=== PATIENT | female | born 1940 | race Caucasian/White ===

== ENCOUNTER 2017-10-08 20:22 | Inpatient (IN) | payer OTHER ==
[~2017-10-08] VITALS: Ht 157.5 cm; Wt 61.7 kg
[~2017-10-08 20:22] MED LIST: ACID REDUCER150 MG PO; DOCUSATE SODIU1 EACH PO; LOPRESSOR100 M1 PO; PROBIOTIC1 EACH PO; PSYLLIUM FIBE0.52 GM PO; TIZANIDINE HCL2 M1 PO; ZOCOR10 M1 PO
[2017-10-08 22:59] VITALS: BP 120/66
[2017-10-08] MEDS ORDERED: TYLENOL PO (23:53)
[2017-10-08] MEDS ORDERED: AMITRIPTYLINE H10 M2 PO (23:53)
[2017-10-08] MEDS ORDERED: ASPIRIN EC325 M2 PO (23:53)
[2017-10-08] MEDS ORDERED: OS-CAL 500+D31 EACH PO (23:55)
[2017-10-08] MEDS ORDERED: CELEBREX200 M1 PO (23:55)
[2017-10-08] MEDS ORDERED: VITAMIN D31000 UNI2 PO (23:56)
[2017-10-08] MEDS ORDERED: NEURONTIN100 M1 PO (23:57)
[2017-10-08] MEDS ORDERED: GLUCOSAMINE &1 EACH PO (23:57)
[2017-10-08] MEDS ORDERED: LEVOTHYROXINE100 MC1 PO (23:58)
[2017-10-08] MEDS ORDERED: HYDROCHLOROTH12.5 M3 PO (23:58)
[2017-10-08] MEDS ORDERED: COZAAR100 M1 PO (23:59)
[2017-10-08] MEDS ORDERED: MELATONIN3 M4 PO (23:59)
--- NOTE | 2017-10-09 00:31 | History & Physical Pre-Op ---
General Information and HPI MD Statement: I have seen and personally examined RAJAN ASTUDILLO and documented this H&P. The patient is a 77 year old F who presented with a patient stated chief complaint of [RIGHT HIP PAIN]. History of Present Illness: This 77 year old female with history of hypertension, hyperlipidemia, heriditary hemochromatosis, colitis, arthritis, hypothyroidism, mitral valve prolapse, spinal stenosis, migraines, and GERD, presents as a direct admission transferred from [facility] with a gustavo-prosthetic right hip fracture approximately one month following an elective right hip replacement by . She describes a twisting motion earlier tonight caused her to nearly fall, however she was caught by her friend walking with her. She immediately felt pain along her right lateral thigh and hip. She was evaluated at [facility], where they found a periprosthetic right hip fracture, and then transferred to [place] for reported plans for surgery on tuesday by . She denied any precipitating factors. No dizziness. No shortness of breath. No chest pains. She was voiding without difficulty prior to the odom insertion at [facility]. She is apprehensive about what her recovery will be like following surgical repair. Allergies/Medications Allergies: Coded Allergies: Penicillins (Mild, HIVES 10/08/17) Home Med list Amitriptyline HCl 10 MG TABLET 1 TAB PO DAILY HOME MED (Reported) Aspirin (Ecotrin*) 325 MG TABLET.DR 1 TAB PO BID POST-OP HIP REPLACEMENT ( Reported) Calcium Carbonate/Vitamin D3 (Os-Meir 500+D3 Caplet) 500 MG-600 TABLET 1 TAB PO D HOME MED (Reported) Celecoxib (Celebrex) 200 MG CAPSULE 1 CAP PO DAILY HOME MED (Reported) Cholecalciferol (Vitamin D3) 1,000 UNIT TABLET 1 TAB PO DAILY VIT D REPLACEMENT (Reported) Gabapentin (Neurontin) 100 MG CAPSULE 1 CAP PO BID HOME MED (Reported) Glucosa Machado 2KCL/Chondroitin Machado (Glucosamine & Chondroitin Cap) (Unknown Strength ) CAPSULE (Unknown Dose) HOME MED (Reported) Hydrochlorothiazide 12.5 MG CAPSULE 1 CAP PO DAILY HYPERTENSION (Reported) Lactobacillus Acidophilus (Probiotic) (Unknown Strength) CAPSULE (Unknown Dose ) HOME MED (Reported) Levothyroxine Sodium 100 MCG TABLET 1 TAB PO DAILY HYPOTHYROIDISM (Reported) Losartan (Cozaar) 100 MG TABLET 1 TAB PO DAILY HYPERTENSION (Reported) SHE HASN'T BEEN TAKING THIS RECENTLY Melatonin 3 MG TABLET 1 TAB PO QPM PRN SLEEP (Reported) Metoprolol Tartrate (Lopressor) 100 MG TABLET 1 TAB PO BID HYPERTENSION ( Reported) Psyllium Husk (Psyllium Fiber) (Unknown Strength) CAPSULE (Unknown Dose) HOME MED (Reported) Ranitidine HCl (Acid Land Title Examiner) 150 MG TABLET 1 TAB PO BID GERD (Reported) Sennosides/Docusate Sodium (Docusate Sodium-Senna Tablet) 8.6 MG-50 MG TABLET 2 TAB PO BID CONSTIPATION (Reported) Simvastatin (Zocor*) 10 MG TABLET 1 TAB PO QPM HYPERLIPIDEMIA (Reported) Tizanidine HCl 2 MG TABLET 1-2 TAB PO TID PRN MUSCLE SPASMS (Reported) [TYLENOL] 975 MG PO TIDPRN PRN PAIN CONTROL (Reported) Past History Medical History Blood Transfusion Hx: No Neurological: migraine EENT: cataracts Cardiovascular: hypertension, hyperlipidemia, mitral valve prolapse Respiratory: NONE Gastrointestinal: colitis, GERD Hepatic: NONE Renal: NONE Musculoskeletal: osteoarthritis, spinal stenosis, osteopenia, scoliosis Psychiatric: anxiety Endocrine: hypothyroidism Blood Disorders: hereditary hemochromatosis Cancer(s): basal cell carcinoma REGISTERED APPRAISER/Reproductive: NONE Isolation History: Standard Influenza Vaccine: 04/03/17 Surgical History Pertinent Surgical History: arthroscopy, cataract removal, hip replacement, tonsillectomy Past Family/Social History Family History Relations & Conditions if any Family history was reviewed; no changes noted. Psychosocial History Where Do You Live? Other Services at Home None Smoking Status: Never Smoked ETOH Use: denies use Review of Systems Review of Systems: admits: right hip pain denies: dizziness, shortness of breath, chest pains, dysuria, diarrhea, nausea/ vomiting Exam & Diagnostic Data Last 24 Hrs of Vital Signs/I&O Vital Signs Date Time Temp Pulse Resp B/P B/P Pulse O2 O2 Flow FiO2 Mean Ox Delivery Rate 10/08 2259 98.1 82 18 120/66 98 Room Air Intake & Output 10/09 0800 04 0000 10/08 1600 Intake Total Output Total Balance Patient 135 lb Weight Weight Reported by Patient Measurement Method Physical Exam: General - alert & oriented x 3. comfortable. no acute distress. Skin - warm, dry, and smooth. no rashes. Neck - soft and supple. no lad. Lungs - clear bilaterally. no w/r/r. Cardiac - reg. Abdomen - soft. nontender. - odom draining clear, yellow urine. Extremities - warm bilaterally. no c/c/e. calves soft and nontender b/l. well healed incision along right thigh. no erythema or exudates. right leg externally rotated and shortened. nvi. palpable pulses distally, which are symmetrical. calves soft and nontender b/l. Neuro - speech smooth and coordinated. no focal deficits. Assessment/Plan Assessment/Plan: This 77 year old white female with hx anxiety, hypertension, hyperlipidemia, hereditary hemochromatosis, hypothyroidism, GERD, migraines, spinal stenosis, mitral valve prolapse, presents about one month s/p right total hip replacement as a direct admission / transfer from [facility] after discovering a periprosthetic right hip fracture s/p twisting injury surgical repair plan for 10/10/17 by will keep npo after midnight for tuesday check labs in morning for pre-op status ?hold asa pre-op pain control as needed odom for strict i/o's and due to immobility home meds ordered ?imaging studies needed will d/w As Ranked By This Provider Problem List: 1. Status post total hip replacement, right 2. Periprosthetic fracture of hip 3. Mitral valve prolapse 4. Anxiety 5. Hypothyroidism 6. GERD (gastroesophageal reflux disease) 7. Hemochromatosis 8. Hyperlipidemia 9. Hypertension 10. Spinal stenosis 11. Colitis 12. Migraine
--- NOTE | 2017-10-09 00:32 | Admission Core Measures ---
Acute Coronary Syndrome (CM) ACS Core Measures Acute Coronary Syndrome Diagnosis No Congestive Heart Failure (NEW) CHF Core Measures Congestive Heart Failure Diagnosis No Cerebrovascular Accident (NEW) CVA Core Measures CVA/TIA Diagnosis No Venous Thromboembolism VTE Core Misbah (View Protocol) VTE Risk Factors Surgery No Mechanical VTE Prophylaxis d/t N/A MechProphylax Ordered No VTE Pharm Prophylaxis d/t Surgical Contraindication Problem List As ranked by this Provider includes Assessment & Plan 1. Status post total hip replacement, right 2. Migraine 3. Colitis 4. Spinal stenosis 5. Mitral valve prolapse 6. Anxiety 7. Hypothyroidism 8. GERD (gastroesophageal reflux disease) 9. Hemochromatosis 10. Hyperlipidemia 11. Hypertension 12. Periprosthetic fracture of hip HOME MEDS Home Med List Amitriptyline HCl 10 MG TABLET 1 TAB PO DAILY HOME MED (Reported) Aspirin (Ecotrin*) 325 MG TABLET.DR 1 TAB PO BID POST-OP HIP REPLACEMENT ( Reported) Calcium Carbonate/Vitamin D3 (Os-Meir 500+D3 Caplet) 500 MG-600 TABLET 1 TAB PO D HOME MED (Reported) Celecoxib (Celebrex) 200 MG CAPSULE 1 CAP PO DAILY HOME MED (Reported) Cholecalciferol (Vitamin D3) 1,000 UNIT TABLET 1 TAB PO DAILY VIT D REPLACEMENT (Reported) Gabapentin (Neurontin) 100 MG CAPSULE 1 CAP PO BID HOME MED (Reported) Hydrochlorothiazide 12.5 MG CAPSULE 1 CAP PO DAILY HYPERTENSION (Reported) Levothyroxine Sodium 100 MCG TABLET 1 TAB PO DAILY HYPOTHYROIDISM (Reported) Losartan (Cozaar) 100 MG TABLET 1 TAB PO DAILY HYPERTENSION (Reported) Melatonin 3 MG TABLET 1 TAB PO QPM PRN SLEEP (Reported) Metoprolol Tartrate (Lopressor) 100 MG TABLET 1 TAB PO BID HYPERTENSION ( Reported) Ranitidine HCl (Acid Dance Instructor) 150 MG TABLET 1 TAB PO BID GERD (Reported) Sennosides/Docusate Sodium (Docusate Sodium-Senna Tablet) 8.6 MG-50 MG TABLET 2 TAB PO BID CONSTIPATION (Reported) Simvastatin (Zocor*) 10 MG TABLET 1 TAB PO QPM HYPERLIPIDEMIA (Reported) Tizanidine HCl 2 MG TABLET 1-2 TAB PO TID PRN MUSCLE SPASMS (Reported) [TYLENOL] 975 MG PO TIDPRN PRN PAIN CONTROL (Reported)
[2017-10-09 05:59] VITALS: BP 146/66
[2017-10-09 08:17] LABS: ABSOLUTE BASOPHIL COUNT 0 /CUMM (0.0-0.2); ABSOLUTE EOSINOPHIL COUNT 0 /CUMM (0.0-0.7); ABSOLUTE LYMPH COUNT 1.3 /CUMM (1.2-3.4); ABSOLUTE MONOCYTE COUNT 0.9 /CUMM (0.10-0.60); BASOPHIL % 0.5 % (0.0-2.0); EOSINOPHIL % 0.5 % (0-5); GRANULOCYTE % 75.7 % (42.2-75.2); HEMATOCRIT 31.3 % (37-47); MEAN CORPUSCULAR HGB 30.4 PG (27.0-31.0); MEAN CORPUSCULAR HGB CONC 33.3 G/DL (33.0-37.0); MEAN CORPUSCULAR VOLUME 91.3 FL (81.0-99.0); MEAN PLATELET VOLUME 9.5 FL (7.4-10.4); PLATELET COUNT 273 /CUMM (130-400); RED BLOOD CELL CT 3.43 /CUMM (4.20-5.40); WHITE BLOOD CELL COUNT 9.2 /CUMM (4.8-10.8)
--- NOTE | 2017-10-09 09:39 | PN- Orthopedic ---
Subjective Subjective: PT IN BED, VERY UPSET AND CONCERNED ABOUT THIS FRACTURE. PAIN CONTROLLED WITH MEDICATION. NO NAUSEA TOLERATING DIET, PASSING GAS, NO BM NO CP/SOB/FEVER, [place]/ DIZZINESS Objective Vital Signs and I&Os Vital Signs Date Time Temp Pulse Resp B/P B/P Pulse O2 O2 Flow FiO2 Mean Ox Delivery Rate 10/09 0459 97.8 77 20 146/66 98 10/08 2259 98.1 82 18 120/66 98 Room Air Intake & Output 10/09 0000 10/08 0000 Intake Total 250 Output Total 300 Balance -50 Intake, Oral 250 Output, Urine 300 Patient 128 lb 135 lb Weight Weight Bed scale Reported by Patient Measurement Method Physical Exam: GEN- NAD RESP- CLEAR CARDIAC- RRR ABD- SOFT, NONTENDER EXT- RIGHT HIP WITH SOFT WITH MODERATE SWELLING AND TENDER TO TOUCH, NO ECCHYMOSIS. RIGHT LEG SHORTENED AND EXTERNALLY ROTATED DISTAL SENSORY AND MOTOR FUNCTION INTACT. 2+DP PULSE. NO CALF TENDERNESS Current Medications: Current Medications Sig/Gordo Start time Last Medication Dose Route Stop Time Status Admin Acetaminophen 1,000 MG Q6P PRN 10/09 14 AC N/A 1 UNIT IV Amitriptyline HCl 10 MG AT BEDTIME 10/09 2200 AC PO Atorvastatin Calcium 10 MG 1700 10/09 1700 AC PO Cholecalciferol 1,000 IU DAILY 10/09 1000 AC PO Famotidine 10 MG BID 10/09 1000 AC PO Gabapentin 100 MG BID 10/09 1000 AC PO Heparin Sodium 5,000 UNIT ONCE ONE 10/09 899 DC (Porcine) SC 10/09 900 Hydrochlorothiazide 12.5 MG DAILY 10/09 1000 AC PO Hydromorphone HCl 2 MG Q4-6 PRN PRN 10/09 001 AC PO Hydromorphone HCl 4 MG Q4-6 PRN PRN 10/09 0015 AC 10/09 PO 0527 Lactobacillus 1 CAP BID 10/09 1000 AC Acidophilus PO Levothyroxine Sodium 0.1 MG DAILY AC 10/09 0700 AC 10/09 PO 0527 Melatonin 5 MG AT BEDTIME PRN 10/09 0015 AC PO Metoprolol Tartrate 100 MG BID 10/09 1000 AC PO Psyllium Hydrophilic 1 PAC BID 10/09 1000 AC Mucilloid PO Senna/Docusate Sodium 2 TAB BID PRN 10/09 14 AC PO Tizanidine HCl 2 MG TIDPRN PRN 10/09 14 AC PO Results Last 48 Hours of Labs: Laboratory Tests 10/09 0600 Chemistry Sodium (137 - 145 mmol/L) 138 Potassium (3.5 - 5.1 mmol/L) 4.0 Chloride (98 - 107 mmol/L) 98 Carbon Dioxide (22 - 30 mmol/L) 26 Anion Gap (5 - 16) 13 BUN (7 - 17 mg/dL) 18 H Creatinine (0.5 - 1.0 mg/dL) 0.8 Estimated GFR (>60 ml/min) > 60 BUN/Creatinine Ratio (7 - 25 %) 22.5 Glucose (65 - 99 mg/dL) 91 Magnesium (1.6 - 2.3 mg/dL) 1.8 Hematology CBC w Diff NO MAN DIFF REQ WBC (4.8 - 10.8 /CUMM) 9.2 RBC (4.20 - 5.40 /CUMM) 3.43 L Hgb (12.0 - 16.0 G/DL) 10.4 L Hct (37 - 47 %) 31.3 L MCV (81.0 - 99.0 FL) 91.3 MCH (27.0 - 31.0 PG) 30.4 MCHC (33.0 - 37.0 G/DL) 33.3 RDW (11.5 - 14.5 %) 14.0 Plt Count (130 - 400 /CUMM) 273 MPV (7.4 - 10.4 FL) 9.5 Gran % (42.2 - 75.2 %) 75.7 H Lymphocytes % (20.5 - 51.1 %) 13.9 L Monocytes % (1.7 - 9.3 %) 9.4 H Eosinophils % (0 - 5 %) 0.5 Basophils % (0.0 - 2.0 %) 0.5 Absolute Granulocytes (1.4 - 6.5 /CUMM) 7.0 H Absolute Lymphocytes (1.2 - 3.4 /CUMM) 1.3 Absolute Monocytes (0.10 - 0.60 /CUMM) 0.9 H Absolute Eosinophils (0.0 - 0.7 /CUMM) 0 Absolute Basophils (0.0 - 0.2 /CUMM) 0 Assessment/Plan Assessment/Plan 77YO F WITH RIGHT HIP PERIPROSTHETIC FEMUR FRACTURE. SP R TIMOTHY 1 MONTH AGO. STABLE. PLAN FOR SURGERY TOMORROW WITH DR SALDANA RIGHT HIP AND FEMUR X-RAYS TODAY PRE-OP LABS IN AM PAIN MANAGEMENT WITH ORAL MEDS REG DIET, THEN NPO AFTER MIDNIGHT IN PREPARATION FOR SURGERY TOMORROW DVT PPX- HSQ X 1 DOSE TODAY. ASA ON HOLD FOR NOW PER SHANA REGULAR HOME MEDICATIONS REYES TO STAY IN FOR NOW Core Measures Venous Thromboembolism VTE Risk Factors Surgery No Mechanical VTE Prophylaxis d/t N/A MechProphylax Ordered No VTE Pharm Prophylaxis d/t Surgical Contraindication
[2017-10-09 14:29] VITALS: BP 120/62
--- NOTE | 2017-10-09 15:40 | RADIOLOGY REPORT ---
EXAMINATION: XR HIP, RIGHT, RIGHT femur CLINICAL INFORMATION: Fracture COMPARISON: None TECHNIQUE: Two views of the right hip, 3 views RIGHT femur. FINDINGS: There is an oblique fracture through the proximal diaphysis of the femur extending from the greater trochanter and medially just distal to the lesser trochanter, there is a gap at the fracture site about 1.7 cm, the fracture is through the insertion of the femoral portion of the RIGHT hip prosthesis. Adjacent pubic rami are intact. Distal femur and femoral condyles are normal. There are mild vascular calcifications. IMPRESSION: Mildly displaced oblique RIGHT femoral fracture extends through the RIGHT hip prosthesis device.
[2017-10-09 21:48] VITALS: BP 110/58
[2017-10-10 05:52] VITALS: BP 124/58
--- NOTE | 2017-10-10 07:27 | PN- Orthopedic ---
Subjective Subjective: CO moderate pain and spasm in the R hip/proximal thigh. no acute events overnight. Objective Vital Signs and I&Os Vital Signs Date Time Temp Pulse Resp B/P B/P Pulse O2 O2 Flow FiO2 Mean Ox Delivery Rate 10/10 0452 98.0 73 20 124/58 96 10/09 2148 98.1 77 18 110/58 96 Room Air 10/09 2027 77 110/58 10/09 1429 98.4 68 20 120/62 97 Room Air 10/09 1013 146/66 Intake & Output 10/10 0810/10 0000 10/09 1600 10/09 0810/09 0000 10/08 1600 Intake Total 800 250 Output Total 250 350 550 300 Balance -250 450 -550 -50 Intake, Oral 800 250 Output, Urine 250 350 550 300 Patient 128 lb 128 lb 135 lb Weight Weight Bed scale Bed scale Reported by Patient Measurement Method Physical Exam: wdwn, aox3, nad no resp distress R LE: tenderenss and pain w ROM R hip, mild swellig. nvi, no calf pain. Assessment/Plan Assessment/Plan R hip periprosthetic femur fracture plan for OR today for revision/orif NPO pain meds as needed IVF bedrest until surgery. Core Measures Venous Thromboembolism VTE Risk Factors Surgery No Mechanical VTE Prophylaxis d/t N/A MechProphylax Ordered No VTE Pharm Prophylaxis d/t Surgical Contraindication
[2017-10-10 08:59] LABS: PT 11.9 SEC (9.4-12.5); PTT 26 SEC (25-37)
[2017-10-10 09:29] LABS: ABSOLUTE BASOPHIL COUNT 0.1 /CUMM (0.0-0.2); ABSOLUTE EOSINOPHIL COUNT 0.2 /CUMM (0.0-0.7); ABSOLUTE GRANULOCYTE CT 5.4 /CUMM (1.4-6.5); ABSOLUTE LYMPH COUNT 1.4 /CUMM (1.2-3.4); BASOPHIL % 0.9 % (0.0-2.0); EOSINOPHIL % 2.5 % (0-5); GRANULOCYTE % 66.7 % (42.2-75.2); HEMATOCRIT 30.7 % (37-47); MEAN CORPUSCULAR HGB 30.7 PG (27.0-31.0); MEAN CORPUSCULAR HGB CONC 33.4 G/DL (33.0-37.0); MEAN CORPUSCULAR VOLUME 92.1 FL (81.0-99.0); MEAN PLATELET VOLUME 9.4 FL (7.4-10.4); PLATELET COUNT 236 /CUMM (130-400); RBC DISTRIBUTION WIDTH 14.3 % (11.5-14.5); RED BLOOD CELL CT 3.33 /CUMM (4.20-5.40); WHITE BLOOD CELL COUNT 8.1 /CUMM (4.8-10.8)
[2017-10-10 14:26] LABS: ABSOLUTE BASOPHIL COUNT 0 /CUMM (0.0-0.2); ABSOLUTE EOSINOPHIL COUNT 0.1 /CUMM (0.0-0.7); ABSOLUTE GRANULOCYTE CT 6.1 /CUMM (1.4-6.5); ABSOLUTE LYMPH COUNT 0.8 /CUMM (1.2-3.4); ABSOLUTE MONOCYTE COUNT 0.7 /CUMM (0.10-0.60); BASOPHIL % 0.3 % (0.0-2.0); EOSINOPHIL % 1.3 % (0-5); GRANULOCYTE % 78.8 % (42.2-75.2); HEMATOCRIT 26.1 % (37-47); MEAN CORPUSCULAR HGB 30.3 PG (27.0-31.0); MEAN CORPUSCULAR HGB CONC 32.9 G/DL (33.0-37.0); MEAN CORPUSCULAR VOLUME 91.9 FL (81.0-99.0); MEAN PLATELET VOLUME 9.3 FL (7.4-10.4); PLATELET COUNT 207 /CUMM (130-400); RBC DISTRIBUTION WIDTH 13.9 % (11.5-14.5); RED BLOOD CELL CT 2.84 /CUMM (4.20-5.40); WHITE BLOOD CELL COUNT 7.7 /CUMM (4.8-10.8)
--- NOTE | 2017-10-10 15:50 | Operative Report ---
Operative/Inv Procedure Report Surgery Date: 10/10/17 Name of Procedure: 1.Right total hip revision 2.ORIF R femur Pre-Operative Diagnosis: Right [place] type BII periprosthetic femur fracture Post-Operative Diagnosis: Same Estimated Blood Loss: 350 Surgeon/Pricing/Signage Team Member: Alex Wilkes MD Anesthesia: block Operative/Procedure Note Note: Description of Procedure: The patient was taken to the operating room and positively identified. After induction of spinal anesthesia and administration of appropriate pre-operative antibiotics, the patient was positioned supine on the operating room table and all bony prominences were well padded. After performing a surgical timeout, the right lower extremity was prepped and draped in the usual sterile fashion. Utilizing the previous incision, a direct anterior approach was made to the right hip. This was carried down through skin and subcutaneous tissue to the level of the fascia. Meticulous hemostasis was maintained with Bovie cautery. The previous fascial incision was identified and opened. A large hematoma was encountered and evacuated. The hip was then exposed. It was immediately apparent that there was a large medial cortical fragment and a smaller anterior cortical fragment. Exposure continued until the femur could be mobilized. The stem was then removed without difficulty. The fracture bed was then curetted free of hematoma and the edges were all cleaned. A pointed reduction forcep, the medial fragment was anatomically reduced. At this time, a Dall-Miles cable was placed at the distal extent of the fracture and tightened. Exposure of the femur then continued. Once I had adequate proximal exposure, the canal was prepared to accept a Carlos jain modular revision hip stem. The canal was reamed distally to accept a 15 mm x 155 mm jain modular conical distal stem. The proximal femur was prepared to accept a 19 mm +0 cone body. This was trialed for leg length and stability. The trial cone body was removed and the final cone body was impacted into place. The torque bolt was tightened to specification. At this point, a second Dall-Miles cable was placed proximal to the lesser trochanter and tightened appropriately. The trunnion was well cleaned and fit with a 36 mm -2.5 Biolox delta ceramic femoral head. The hip was reduced and put through a full range of motion and found to be quite stable. The articular space was then irrigated with sterile saline. The periarticular soft tissues were infilitrated with Marcaine. A gram of vancomycin powder was left in the intra-articular space. A medium Hemovac drain was placed. The fascial layer was closed with interrupted #1 vicryl suture and the skin was re- approximated with interrupted 2-0 vicryl. The skin was closed with a running 3- 0 V-Lock suture. Steri-strips and a sterile dressing were applied. The patient was awakened and taken to the recovery room in satisfactory condition.
--- NOTE | 2017-10-10 16:35 | PN- Orthopedic ---
Subjective Subjective: Postop check: Patient comfortable, and expected pain postoperatively. No other complaints. Objective Vital Signs and I&Os Vital Signs Date Time Temp Pulse Resp B/P B/P Pulse O2 O2 Flow FiO2 Mean Ox Delivery Rate 10/10 1148 Room Air 10/10 1144 Room Air 10/10 1045 72 124/58 10/10 0552 98.0 73 20 124/58 96 10/09 2148 98.1 77 18 110/58 96 Room Air 10/09 2026 77 110/58 Vital signs stable, afebrile, heart rate 70, blood pressure 124/80 Intake & Output 10/10 1600 10/10 0810/10 0000 10/09 1600 10/09 0000 Intake Total 800 250 Output Total 300 250 350 550 300 Balance -300 -250 450 -550 -50 Intake, Oral 800 250 Number 0 Bowel Movements Output, Urine 300 250 350 550 300 Patient 128 lb 128 lb 135 lb Weight Weight Bed scale Bed scale Reported by Patient Measurement Method Physical Exam: Well-developed well-nourished no apparent distress. HEENT: Atraumatic, extraocular motion intact Neck: Supple, no lymphadenopathy Respiratory: No respiratory distress Extremities: No edema RIGHT lower extremity hip dressing in place, Dressing clean dry and intact Hemovac drain in place, small amount of bloody drainage noted, holding suction Moderate thigh swelling No signs of infection. No shortening or rotation Neurovascularly intact distally Bilateral calves are supple, nontender. Neuro: Alert and oriented x3 Psych: Mood affect normal, normal memory normal judgment. Skin: Warm and dry, no rash on exposed skin Assessment/Plan Assessment/Plan Postop day #0 status post right total hip arthroplasty revision and open reduction internal fixation secondary to periprosthetic right femur fracture. Perioperative antibiotics. Pain medication as needed. Out of bed tomorrow Physical therapy, weightbearing as tolerated IV fluids Regular diet Continue Hemovac Acute blood loss anemia, received transfusion of 1 unit of packed red blood cells in the OR secondary to hematocrit of 26 and hypotension, Follow a.m. labs Aspirin for DVT prophylaxis starting tomorrow ALPS for DVT prophylaxis Regular home meds Dressing change postop day 2 Would like to be discharged to [facility] for continued physical therapy rehabilitation when medically stable Core Measures Venous Thromboembolism VTE Risk Factors Surgery No Mechanical VTE Prophylaxis d/t N/A MechProphylax Ordered No VTE Pharm Prophylaxis d/t Surgical Contraindication
--- NOTE | 2017-10-10 16:51 | RADIOLOGY REPORT ---
EXAMINATION: XR HIP, RIGHT CLINICAL INFORMATION: Right hip replacement. COMPARISON: None TECHNIQUE: Two views of the right hip. FINDINGS: Status post right hip replacement. Orthopedic and femoral components in place. There are cerclage wires around the proximal femur. There is a surgical drain in place IMPRESSION: Status post right hip replacement.
[2017-10-10 21:12] VITALS: BP 153/81
[2017-10-10 22:19] VITALS: BP 128/60
[2017-10-11 02:00] VITALS: BP 126/58
[2017-10-11 06:00] VITALS: BP 134/64
[2017-10-11 08:01] LABS: ABSOLUTE BASOPHIL COUNT 0 /CUMM (0.0-0.2); ABSOLUTE EOSINOPHIL COUNT 0 /CUMM (0.0-0.7); ABSOLUTE GRANULOCYTE CT 10.6 /CUMM (1.4-6.5); ABSOLUTE LYMPH COUNT 0.6 /CUMM (1.2-3.4); BASOPHIL % 0 % (0.0-2.0); EOSINOPHIL % 0 % (0-5); MEAN PLATELET VOLUME 9.3 FL (7.4-10.4); RBC DISTRIBUTION WIDTH 14.9 % (11.5-14.5)
[2017-10-11 08:21] LABS: ABSOLUTE MONOCYTE COUNT 0.9 /CUMM (0.10-0.60); MEAN CORPUSCULAR HGB 30.4 PG (27.0-31.0); MEAN CORPUSCULAR VOLUME 89.3 FL (81.0-99.0); PLATELET COUNT 216 /CUMM (130-400); RED BLOOD CELL CT 3.14 /CUMM (4.20-5.40)
[2017-10-11 08:27] LABS: WHITE BLOOD CELL COUNT 12.1 /CUMM (4.8-10.8)
--- NOTE | 2017-10-11 08:35 | PN- Orthopedic ---
Subjective Subjective: Patient progressing well. No complaints of pain to her right hip. Tolerating a regular diet. Voiding spontaneously. Yet to ambulate with PT. Objective Vital Signs and I&Os Vital Signs Date Time Temp Pulse Resp B/P B/P Pulse O2 O2 Flow FiO2 Mean Ox Delivery Rate 10/11 599 97.7 81 18 134/64 99 10/11 0200 97.6 73 18 126/58 94 10/10 2219 97.8 79 18 128/60 100 Room Air 10/10 2112 97.6 96 20 153/81 100 Room Air 10/10 2052 122/72 10/10 1148 Room Air 10/10 1144 Room Air 10/10 1045 72 124/58 Intake & Output 10/11 1600 10/11 0000 10/10 1600 10/10 0000 Intake Total 940 800 Output Total 800 100 300 250 350 Balance 140 -100 -300 -250 450 Intake, IV 700 Intake, Oral 240 800 Number 0 Bowel Movements Output, 100 Drainage Output, Urine 700 100 300 250 350 Patient 136 lb 128 lb Weight Weight Bed scale Measurement Method Physical Exam: Gen: AAOx3 in NAD Cor: S1+S2+ Lungs: CTA jero Abd: soft, NT, ND, +BS x4 Ext: right hip dressing C/D/I. Dorsiflexion/plantar flexion 5/5. Palpable DP pulse. Foot cool. TEDs/ALPs in place. Current Medications: Current Medications Sig/Gordo Start time Last Medication Dose Route Stop Time Status Admin Acetaminophen 1,000 MG Q6H 10/10 2014 AC 10/11 N/A 1 UNIT IV 10/11 1429 0206 Acetaminophen 1,000 MG Q6P PRN 10/10 1515 DC N/A 1 UNIT IV Acetaminophen 1,000 MG Q6P PRN 10/09 0015 DC N/A 1 UNIT IV Amitriptyline HCl 10 MG AT BEDTIME 10/09 220 AC 10/10 PO 205 Aspirin Buffered 325 MG BID 10/11 1000 AC PO Atorvastatin Calcium 10 MG 1700 10/09 1700 AC 10/10 PO 1838 Cefazolin Sodium 2 GM IQ8 10/11 0000 DC 10/10 N/A 1 UNIT IV 10/11 0829 2347 Cholecalciferol 1,000 IU DAILY 10/09 1000 AC 10/10 PO 1046 Dextrose/Sodium 1,000 ML Q13H 10/10 1515 DC 10/10 Chloride IV 2349 Docusate Sodium 100 MG .STK-MED ONE 10/10 2046 DC PO 10/10 204 Famotidine 10 MG BID 10/09 1000 AC 10/10 PO 2051 Fentanyl Citrate 100 MCG .STK-MED ONE 10/10 1011 DC IM 10/10 1012 Gabapentin 100 MG BID 10/09 1000 AC 10/10 PO 2050 Hydrochlorothiazide 12.5 MG DAILY 10/09 1000 AC 10/10 PO 104 Hydromorphone HCl 2 MG Q4-6 PRN PRN 10/09 001 AC PO Hydromorphone HCl 4 MG Q4-6 PRN PRN 10/09 0015 AC 10/10 PO 183 Ketamine HCl 50 MG .STK-MED ONE 10/10 1230 DC IM 10/10 1231 Ketorolac 15 MG Q8 10/10 2200 AC 10/11 Tromethamine IV 10/12 0601 0513 Lactobacillus 1 CAP BID 10/09 1000 AC 10/10 Acidophilus PO 2050 Levothyroxine Sodium 0.1 MG DAILY AC 10/09 0700 AC 10/11 PO 0512 Melatonin 5 MG AT BEDTIME PRN 10/09 001 AC PO Metoprolol Tartrate 50 MG BID 10/09 2200 AC 10/10 PO 2051 Midazolam HCl 2 MG .STK-MED ONE 10/10 1012 DC IM 10/10 1013 Midazolam HCl 2 MG .STK-MED ONE 10/10 1012 DC IM 10/10 1013 Morphine Sulfate 2 MG Q2P PRN 10/10 2030 AC IV Morphine Sulfate 4 MG Q2P PRN 10/10 1645 DC IV Morphine Sulfate 2 MG Q2P PRN 10/10 1515 DC IV Psyllium Hydrophilic 1 PAC BID 10/09 1000 AC 10/10 Mucilloid PO 1043 Senna/Docusate Sodium 2 TAB BID PRN 10/09 001 AC PO Tizanidine HCl 2 MG TIDPRN PRN 10/09 001 AC PO Tranexamic Acid 2,000 MG .STK-MED ONE 10/10 1011 DC IV 10/10 1012 Results Last 48 Hours of Labs: Laboratory Tests 10/11 10/10 10/10 0625 1400 0617 Chemistry Sodium (137 - 145 mmol/L) 138 138 Potassium (3.5 - 5.1 mmol/L) 4.0 4.1 Chloride (98 - 107 mmol/L) 101 97 L Carbon Dioxide (22 - 30 mmol/L) 25 28 Anion Gap (5 - 16) 12 12 BUN (7 - 17 mg/dL) 12 21 H Creatinine (0.5 - 1.0 mg/dL) 0.8 0.9 Estimated GFR (>60 ml/min) > 60 > 60 BUN/Creatinine Ratio (7 - 25 %) 15.0 23.3 Coagulation PT (9.4 - 12.5 SEC) 11.9 INR (0.90 - 1.19) 1.09 APTT (25 - 37 SEC) 26 Hematology CBC w Diff Pending NO MAN DIFF REQ NO MAN DIFF REQ WBC (4.8 - 10.8 /CUMM) Pending 7.7 8.1 RBC (4.20 - 5.40 /CUMM) Pending 2.84 L 3.33 L Hgb (12.0 - 16.0 G/DL) Pending 8.6 L 10.2 L Hct (37 - 47 %) Pending 26.1 L 30.7 L MCV (81.0 - 99.0 FL) Pending 91.9 92.1 MCH (27.0 - 31.0 PG) Pending 30.3 30.7 MCHC (33.0 - 37.0 G/DL) Pending 32.9 L 33.4 RDW (11.5 - 14.5 %) Pending 13.9 14.3 Plt Count (130 - 400 /CUMM) Pending 207 236 MPV (7.4 - 10.4 FL) Pending 9.3 9.4 Gran % (42.2 - 75.2 %) Pending 78.8 H 66.7 Lymphocytes % (20.5 - 51.1 %) Pending 9.9 L 17.8 L Monocytes % (1.7 - 9.3 %) Pending 9.7 H 12.1 H Eosinophils % (0 - 5 %) Pending 1.3 2.5 Basophils % (0.0 - 2.0 %) Pending 0.3 0.9 Absolute Granulocytes (1.4 - 6.5 /CUMM) Pending 6.1 5.4 Absolute Lymphocytes (1.2 - 3.4 /CUMM) Pending 0.8 L 1.4 Absolute Monocytes (0.10 - 0.60 /CUMM) Pending 0.7 H 1.0 H Absolute Eosinophils (0.0 - 0.7 /CUMM) Pending 0.1 0.2 Absolute Basophils (0.0 - 0.2 /CUMM) Pending 0 0.1 Assessment/Plan Assessment/Plan A: POD #1 s/p ORIF right hip; AVSS Plan: To discuss removal of drain with Dr. Wilkes. PT eval today. ASA for DVT ppx. Bowel regimen to continue. Case management to see for discharge planning. Continue pain control regimen with ATC tylenol/toradol Core Measures Venous Thromboembolism VTE Risk Factors Surgery No Mechanical VTE Prophylaxis d/t N/A MechProphylax Ordered No VTE Pharm Prophylaxis d/t Surgical Contraindication
[2017-10-11 08:45] LABS: GRANULOCYTE % 87.7 % (42.2-75.2)
[2017-10-11 10:53] VITALS: BP 118/60
[2017-10-11 14:12] VITALS: BP 124/64
[2017-10-11] MEDS ORDERED: HYDROMORPHONE HC2 M1 PO (15:21)
[2017-10-11] MEDS ORDERED: ASPIRIN EC325 M2 PO (15:21)
--- NOTE | 2017-10-11 15:23 | Patient Discharge Instructions ---
Discharge Instructions General Discharge Information You were seen/treated for: RIGHT HIP periprosthetic FRACTURE You had these procedures: Right hip periprosthetic fracture ORIF and right total hip arthroplasty revision of femoral component to a longstem prosthesis Watch for these problems: INCREASED PAIN, REDNESS, DRAINAGE, FEVER GREATER THAN 101F Do not soak the wound: Yes No bath, but you may shower: Yes (in 3 days) Other wound care: YOUR DRESSING WILL BE CHANGED EVERY OTHER DAY TO YOUR RIGHT HIP. CONTINUE TO TAKE ASPIRIN TWICE A DAY FOR 6 WEEKS POST OPERATIVELY TO PREVENT BLOOD CLOTS IN YOUR LEGS Special Instructions: Call for follow-up appointment in 2 weeks Weightbearing as tolerated right lower extremity Diet Continue normal diet: Yes Activity Full Activity/No Limits: No Activity Self Limited: Yes Pounds, do NOT lift more than: 10 Activity Limited to: Weight bear as tolerated Acute Coronary Syndrome Inclusion Criteria At DC or during hospital stay patient has or had the following: ACS DIAGNOSIS No Discharge Core Measures Meds if any: Prescribed or Continued at Discharge Meds if any: NOT Prescribed or Continued at Discharge Congestive Heart Failure Inclusion Criteria At DC or during hospital stay patient has or had the following: CHF DIAGNOSIS No Discharge Core Measures Meds if any: Prescribed or Continued at Discharge Meds if any: NOT Prescribed or Continued at Discharge Cerebrovascular accident Inclusion Criteria At DC or during hospital stay patient has or had the following: CVA/TIA Diagnosis No Discharge Core Measures Meds if any: Prescribed or Continued at Discharge Meds if any: NOT Prescribed or Continued at Discharge Venous thromboembolism Inclusion Criteria VTE Diagnosis No VTE Type NONE VTE Confirmed by (Test) NONE Discharge Core Measures - Per Current guidelines, there needs to be overlap - treatment for the first 5 days of Warfarin therapy. - If discharged on Warfarin prior to 5 days of - overlap therapy, the patient will need to be - assessed for post discharge needs including - *Post discharge parental anticoagulation - *Warfarin and/or parental anticoagulation education - *Follow up date to check INR post discharge At least 5 days overlap therapy as Inpatient No Meds if any: Prescribed or Continued at Discharge Note: Overlap Therapy is Warfarin and Anticoagulant Meds if any: NOT Prescribed or Continued at Discharge
--- NOTE | 2017-10-11 15:26 | Surgical Discharge Summary ---
Visit Information Visit Dates Admission Date: 10/08/17 Discharge Date: 10/12/17 History of Present Illness Chief Complaint: RIGHT HIP PAIN Medical History Blood Transfusion Hx: No Neurological: migraine EENT: cataracts Cardiovascular: hypertension, hyperlipidemia, mitral valve prolapse Respiratory: NONE Gastrointestinal: colitis, GERD Hepatic: NONE Renal: NONE Musculoskeletal: osteoarthritis, spinal stenosis, osteopenia scoliosis Psychiatric: anxiety Endocrine: hypothyroidism Blood Disorders: hereditary hemochromatosis Cancer(s): basal cell carcinoma [employer] RIGGER/Reproductive: NONE History of MRSA: No History of VRE: No History of CDIFF: No Isolation History: Standard Influenza Vaccine: 04/03/17 Surgical History Pertinent Surgical History: arthroscopy, cataract removal, hip replacement, tonsillectomy Psychosocial History Where Do You Live? Other Who Do You Live With? Patient/Self Services at Home: None What is Your Primary Language? Guatemalan ETOH Use: denies use Review of Systems: SEE HPI Hospital Course Course Attending Physician: Alex Saldana MD Primary Care Physician: Unknown Hospital Course: PATIENT IS A 77 YEAR OLD FEMALE. WHILE WALKING WITH A FRIEND, SHE TWISTED AND FELT PAIN IMMEDIATELY IN HER RIGHT HIP. SHE DID NOT FALL. UPON EVALUATION IN THE ED, SHE WAS FOUND TO HAVE A PERIPROSTHETIC HIP FRACTURE ON THE RIGHT SIDE. SHE WAS TAKEN TO THE OPERATING ROOM, AND UNDERWENT REVISION RIGHT TOTAL HIP ARTHROPLASTY OF THE FEMORAL COMPONENT TO HIS LUNGS AND PROSTHESIS AND ORIF OF THE PROXIMAL FEMUR. She was given 1 unit of packed red blood cells intraoperatively due to acute blood loss anemia. SHE WAS ULTIMATELY TRANSFERRED TO THE SURGICAL FLOOR IN STABLE CONDITION. Hemovac drain was placed and this was removed postop day 2 Antibiotics were completed DVT prophylaxis with aspirin and a LP S HER DIET WAS ADVANCED, FLUIDS WERE STOPPED, PAIN WAS CONTROLLED, AND WAS SEEN BY PHYSICAL THERAPY. ON POD #2, SHE WAS CLEARED FOR DISCHARGE TO [facility], ON ASPIRIN THERAPY X 6 WEEKS, WITH OUTPATIENT FOLLOW UP WITH DR. SALDANA in 2 weeks' time. Complications: Acute blood loss anemia requiring 1 unit of blood transfusion Allergies: Coded Allergies: Penicillins (Mild, HIVES 10/08/17) Disposition Summary Disposition Principal Diagnosis: RIGHT PERIPROSTHETIC HIP FRACTURE Additional Diagnosis: Status post revision right total hip arthroplasty and ORIF right proximal femur Acute blood loss anemia Discharge Disposition: SNF Discharge Instructions General Discharge Information Code Status: Full Code Patient's Diet: REGULAR Patient's Activity: WEIGHT BEAR TOLERATED Follow-Up Instructions/Appts: DR SALDANA Medications at Discharge Discharge Medications: Stop taking the following medications: Aspirin (Ecotrin*) 325 MG TABLET. ORAL TWICE DAILY Days = 30 Continue taking these medications: [TYLENOL] 975 Milligram ORAL THREE TIMES A DAY NEEDED as needed for PAIN CONTROL Amitriptyline HCl (Amitriptyline HCl) 10 MG TABLET 1 Tablet ORAL DAILY Qty = 30 Calcium Carbonate/Vitamin D3 (Os-Meir 500+D3 Caplet) 500 MG-600 TABLET 1 Tablet ORAL Every Day Qty = 30 Celecoxib (Celebrex) 200 MG CAPSULE 1 Capsule ORAL DAILY Qty = 30 Cholecalciferol (Vitamin D3) 1,000 UNIT TABLET 1 Tablet ORAL DAILY Qty = 30 Gabapentin (Neurontin) 100 MG CAPSULE 1 Capsule ORAL TWICE DAILY Days = 30 Glucosa [place] 2KCL/Chondroitin [place] (Glucosamine & Chondroitin Cap) (Unknown Strength ) CAPSULE Unknown Dose Hydrochlorothiazide (Hydrochlorothiazide) 12.5 MG CAPSULE 1 Capsule ORAL DAILY Qty = 30 Levothyroxine Sodium (Levothyroxine Sodium) 100 MCG TABLET 1 Tablet ORAL DAILY Qty = 30 Losartan (Cozaar) 100 MG TABLET 1 Tablet ORAL DAILY Qty = 30 Instructions: SHE HASN'T BEEN TAKING THIS RECENTLY Melatonin (Melatonin) 3 MG TABLET 1 Tablet ORAL Every night as needed for SLEEP Qty = 30 Metoprolol Tartrate (Lopressor) 100 MG TABLET 1 Tablet ORAL TWICE DAILY Qty = 60 Lactobacillus Acidophilus (Probiotic) (Unknown Strength) CAPSULE Unknown Dose Psyllium Husk (Psyllium Fiber) (Unknown Strength) CAPSULE Unknown Dose Ranitidine HCl (Acid Rep[employer]r [employer]) 150 MG TABLET 1 Tablet ORAL TWICE DAILY Qty = 60 Sennosides/Docusate Sodium (Docusate Sodium-Senna Tablet) 8.6 MG-50 MG TABLET 2 Tablet ORAL TWICE DAILY Qty = 60 Simvastatin (Zocor*) 10 MG TABLET 1 Tablet ORAL Every night Qty = 30 Tizanidine HCl (Tizanidine HCl) 2 MG TABLET 1-2 Tablet ORAL THREE TIMES DAILY as needed for MUSCLE SPASMS Qty = 30 Start taking the following new medications: Aspirin (Ecotrin*) 325 MG TABLET. 325 Milligram ORAL TWICE DAILY Qty = 84 No Refills Hydromorphone HCl (Hydromorphone HCl) 2 MG TABLET 2-4 Milligram ORAL EVERY 4 HOURS NEEDED as needed for PAIN Qty = 36 No Refills
[2017-10-11 22:23] VITALS: BP 148/78
[2017-10-12 00:34] VITALS: BP 124/60
[2017-10-12 03:46] VITALS: BP 122/60
--- NOTE | 2017-10-12 07:34 | PN- Orthopedic ---
Subjective Subjective: pain controlled-po dilaudid and iv toradol, no acute events overnight. feeling better overall. No fever no flulike illness no chest pain or shortness of breath Objective Vital Signs and I&Os Vital Signs Date Time Temp Pulse Resp B/P B/P Pulse O2 O2 Flow FiO2 Mean Ox Delivery Rate 10/12 0346 98.4 79 22 122/60 96 Room Air 10/12 0034 98.1 90 20 124/60 95 Room Air 10/11 2223 98.2 85 19 148/78 99 Room Air 10/11 2130 85 148/78 10/11 1412 98.4 80 18 124/64 100 Room Air 10/11 1053 97.7 74 18 118/60 100 Room Air Intake & Output 10/12 0800 10/12 0000 10/11 1600 10/11 0810/11 0000 10/10 1600 Intake Total 240 1020 1000 940 Output Total 5 810 865 800 100 300 Balance 235 210 135 140 -100 -300 Intake, IV 20 100 700 Intake, Oral 240 1000 900 240 Number 0 0 Bowel Movements Output, 5 10 15 100 Drainage Output, Urine 800 850 700 100 300 Patient 136 lb Weight Physical Exam: Well-developed well-nourished no apparent distress. HEENT: Atraumatic, extraocular motion intact Neck: Supple, no lymphadenopathy Respiratory: No respiratory distress Extremities: No edema RIGHT lower extremity hip dressing in place, Moderate bloody drainage Incision without erythema Moderate thigh swelling No signs of infection. Hemovac drain with 5 mL of output, bloody. Hemovac drain removed, moderate amount of thin serious drainage expressed from the drain site after the drain was removed. Dry sterile dressing applied No shortening or rotation Hip range of motion is limited and without unexpected pain Neurovascularly intact distally Bilateral calves are supple, nontender. Neuro: Alert and oriented x3 Psych: Mood affect normal, normal memory normal judgment. Skin: Warm and dry, no rash on exposed skin Results Last 48 Hours of Labs: Laboratory Tests 10/11 10/10 0625 1400 Chemistry Sodium (137 - 145 mmol/L) 138 Potassium (3.5 - 5.1 mmol/L) 4.0 Chloride (98 - 107 mmol/L) 101 Carbon Dioxide (22 - 30 mmol/L) 25 Anion Gap (5 - 16) 12 BUN (7 - 17 mg/dL) 12 Creatinine (0.5 - 1.0 mg/dL) 0.8 Estimated GFR (>60 ml/min) > 60 BUN/Creatinine Ratio (7 - 25 %) 15.0 Hematology CBC w Diff NO MAN DIFF REQ NO MAN DIFF REQ WBC (4.8 - 10.8 /CUMM) 12.1 H 7.7 RBC (4.20 - 5.40 /CUMM) 3.14 L 2.84 L Hgb (12.0 - 16.0 G/DL) 9.5 L 8.6 L Hct (37 - 47 %) 28.0 L 26.1 L MCV (81.0 - 99.0 FL) 89.3 91.9 MCH (27.0 - 31.0 PG) 30.4 30.3 MCHC (33.0 - 37.0 G/DL) 34.0 32.9 L RDW (11.5 - 14.5 %) 14.9 H 13.9 Plt Count (130 - 400 /CUMM) 216 207 MPV (7.4 - 10.4 FL) 9.3 9.3 Gran % (42.2 - 75.2 %) 87.7 H 78.8 H Lymphocytes % (20.5 - 51.1 %) 4.8 L 9.9 L Monocytes % (1.7 - 9.3 %) 7.5 9.7 H Eosinophils % (0 - 5 %) 0 1.3 Basophils % (0.0 - 2.0 %) 0 0.3 Absolute Granulocytes (1.4 - 6.5 /CUMM) 10.6 H 6.1 Absolute Lymphocytes (1.2 - 3.4 /CUMM) 0.6 L 0.8 L Absolute Monocytes (0.10 - 0.60 /CUMM) 0.9 H 0.7 H Absolute Eosinophils (0.0 - 0.7 /CUMM) 0 0.1 Absolute Basophils (0.0 - 0.2 /CUMM) 0 0 Assessment/Plan Assessment/Plan A: POD #2 s/p revision right total hip arthroplasty and ORIF right hip secondary to periprosthetic fracture Plan: Hemovac drain removed, dry sterile dressing applied PT, weightbearing as tolerated. ASA for DVT ppx. Bowel regimen to continue. Discharge planning, to long term facility today Acute blood loss anemia: Resolved Pain well-controlled Hemodynamically stable 2 week follow-up in office Daily dressing changes, dry sterile dressing Core Measures Venous Thromboembolism VTE Risk Factors Surgery No Mechanical VTE Prophylaxis d/t N/A MechProphylax Ordered No VTE Pharm Prophylaxis d/t Surgical Contraindication
[2017-10-12 08:30] VITALS: BP 118/52
[2017-10-12 12:00] VITALS: BP 116/70
[2017-10-12 12:37] VITALS: BP 120/78
== END 2017-10-12 14:36 | DRG 467 ==
LOC: 2NB 22:04 → ENTRNSPT 10-10 17:24 → EDTRNSPT 10-10 17:34 → EDTRNSPTSTS 10-10 17:35 → CMPTRNSPT 10-10 17:56 → ENPENDDIS 10-12 08:27 → 2NB 10-12 14:36
PROVIDERS: Nurse Practitioner; Orthopaedic Surgery; Physician Assistant; Physician Assistant Surgical
PROC: 0SPR0JZ Removal of Synthetic Substitute from Right Hip Joint, Femoral Surface, Open Approach (ICD-10-PCS; principal; 2017-10-10)
PROC: 0SRR0JA Replacement of Right Hip Joint, Femoral Surface with Synthetic Substitute, Uncemented, Open Approach (ICD-10-PCS; principal; 2017-10-10)
PROC: 30233N1 Transfusion of Nonautologous Red Blood Cells into Peripheral Vein, Percutaneous Approach (ICD-10-PCS; 2017-10-10)
DX: M97.01XA Periprosthetic fracture around internal prosthetic right hip joint, initial encounter (principal); D62 Acute posthemorrhagic anemia; I34.1 Nonrheumatic mitral (valve) prolapse; M41.80 Other forms of scoliosis, site unspecified; E83.110 Hereditary hemochromatosis; M85.88 Other specified disorders of bone density and structure, other site; E78.5 Hyperlipidemia, unspecified; I10 Essential (primary) hypertension; E83.119 Hemochromatosis, unspecified; M19.90 Unspecified osteoarthritis, unspecified site; K21.9 Gastro-esophageal reflux disease without esophagitis; M48.00 Spinal stenosis, site unspecified; G43.909 Migraine, unspecified, not intractable, without status migrainosus; Z88.0 Allergy status to penicillin; Z79.82 Long term (current) use of aspirin; H26.9 Unspecified cataract; F41.9 Anxiety disorder, unspecified; E03.9 Hypothyroidism, unspecified; Z96.641 Presence of right artificial hip joint; K52.9 Noninfective gastroenteritis and colitis, unspecified
CPT/HCPCS: 36415; 36592; 73502-RT; 73552; 82436; 86920; 93005; 93010; 97110-GO; 97116-GO; 97161-GP; 97530-GO; J0131; J0690; J0735; J3370; J7042; P9016